=== PATIENT | female | born 1975 | race Caucasian/White ===

== ENCOUNTER 2016-11-28 20:56 | Emergency (ER) | payer OTHER ==
[~2016-11-28] VITALS: Ht 188 cm; Wt 81.8 kg
[2016-11-28 21:15] VITALS: Ht 188 cm; Wt 81.8 kg
[2016-11-28 21:24] LABS: BASOPHIL # 0.1 10^3/ul (0.0-0.1); BASOPHILS % 0.8 % (0.0-2.0); EOSINOPHILS # 0.1 10^3/ul (0.0-0.5); HEMATOCRIT 44.5 % (37.0-47.0); HEMOGLOBIN 14.8 g/dl (12.0-16.0); LYMPHOCYTES # 1.6 10^3/ul (0.8-2.9); LYMPHOCYTES % 14.6 % (15.0-51.0); MEAN CORPUSCULAR HEMOGLOBIN 30.9 pg (29.0-33.0); MEAN CORPUSCULAR HGB CONC 33.3 g/dl (32.0-37.0); MEAN CORPUSCULAR VOLUME 92.8 fl (82.0-101.0); MONOCYTE # 0.6 10^3/ul (0.3-0.9); MONOCYTES % 5.4 % (0.0-11.0); NEUTROPHIL # 8.5 10^3/ul (1.6-7.5); NEUTROPHILS % 78.2 % (39.0-77.0); PLATELET COUNT 313 10^3/UL (140-440); RED CELL DISTRIBUTION WIDTH 14.1 % (11.5-14.5); UNCORRECTED WBC 10.9 10^3/ul (4.8-10.8); WHITE BLOOD COUNT 10.9 10^3/ul (4.8-10.8)
[2016-11-28 21:31] LABS: CONDITION 1
[2016-11-28 21:39] LABS: ALBUMIN 4.6 g/dl (3.3-4.9)
[2016-11-28 21:40] LABS: CHLORIDE 106 mmol/L (97-110); POTASSIUM 4.8 mmol/L (3.5-5.1); SODIUM 145 mmol/L (135-144)
[2016-11-28 21:42] LABS: ALANINE AMINOTRANSFERASE 34 IU/L (13-69); ALBUMIN/GLOBULIN RATIO 1.31; ALKALINE PHOSPHATASE 103 IU/L (42-121); ANION GAP 20 (8-16); ASPARTATE AMINO TRANSFERASE 48 IU/L (15-46); BILIRUBIN,INDIRECT 0.5 mg/dl (0-1.1); BILIRUBIN,TOTAL 0.5 mg/dl (0.2-1.3); BLOOD UREA NITROGEN 8 mg/dl (7-20); CARBON DIOXIDE 24 mmol/L (21-31); GLUCOSE 102 mg/dl (70-220); TOTAL PROTEIN 8.1 g/dl (6.1-8.1)
[2016-11-28 21:43] LABS: ACETAMINOPHEN < 10.0 ug/ml (10.0-30.0); CALCIUM 9.5 mg/dl (8.4-10.2); SALICYLATE < 1.0 mg/dl (5.0-30.0)
[2016-11-28 21:44] LABS: ETHANOL < 10.0 mg/dl
--- NOTE | 2016-11-28 21:50 | ERA ---
ER Documentation Chief Complaint Date/Time DATE: 11/28/16 TIME: 21:46 Chief Complaint "overdose on more than 30 pills"- patient unable to say what kind of pills HPI Patient is a 41-year-old female with ADHD who presents after an overdose. Please note the history and physical exam is limited secondary to the patient's ability to give a history at this time. The patient was brought in by ambulance. She says that she overdosed on 30 pills although she does not know what pills these were. She thinks they might be "a muscle relaxer like Soma or baclofen". She cannot give me a good history as to when she actually even took these pills. At first she said 1:00 and when I asked whether that was 1:00 in the afternoon or 1:00 in the morning she said "the afternoon, no the morning". Paramedics said that he did not see any signs of pill bottles or other drugs in the house. The patient admits to smoking cigarettes but denies illicit drug use. She says that she has not drank alcohol today. She says that this overdose was intentional and she was trying to kill herself ROS All systems reviewed and are negative except as per history of present illness. Allergies Allergies: Coded Allergies: No Known Allergy (Unverified , 11/28/16) PMhx/Soc Medical and Surgical Hx: pt denies Surgical Hx History of Surgery: No Anesthesia Reaction: No Hx Neurological Disorder: Yes (ADHD) Hx Respiratory Disorders: No Hx Cardiac Disorders: No Hx Psychiatric Problems: No (denies depression) Hx Miscellaneous Medical Probl: No Hx Alcohol Use: No Hx Substance Use: No Hx Tobacco Use: Yes Smoking Status: Current every day smoker FmHx Family History: diabetes Physical Exam Vitals Vital Signs Date Time Temp Pulse Resp B/P Pulse Ox O2 Delivery O2 Flow Rate FiO2 11/28/16 21:15 96.0 76 28 164/90 98 Room Air 11/28/16 21:15 96.0 76 25 164/90 98 Physical Exam Const: Confused Head: Atraumatic Eyes: Normal Conjunctiva ENT: Normal External Ears, Nose and Mouth. Neck: Full range of motion..~ No meningismus. Resp: Clear to auscultation bilaterally Cardio: Regular rate and rhythm, no murmurs Abd: Soft, non tender, non distended. Normal bowel sounds Skin: No petechiae or rashes Back: No midline or flank tenderness Ext: No cyanosis, or edema Neur: Awake but confused Psych: Patient has a spastic affect and does admit to intentional overdose Result Diagram: 11/28/16211411/28/162114 Results 24 hrs Laboratory Tests Test 11/28/16 21:15 Acetaminophen Level < 10.0ug/ml Alanine Aminotransferase (ALT/SGPT) 34IU/L Albumin 4.6g/dl Albumin/Globulin Ratio 1.31 Alkaline Phosphatase 103IU/L Anion Gap 20 Aspartate Amino Transf (AST/SGOT) 48IU/L Basophils # 0.110^3/ul Basophils % 0.8% Blood Urea Nitrogen 8mg/dl Calcium Level 9.5mg/dl Carbon Dioxide Level 24mmol/L Chloride Level 106mmol/L Creatinine 0.70mg/dl Direct Bilirubin 0.00mg/dl Eosinophils # 0.110^3/ul Eosinophils % 1.0% Ethyl Alcohol Level < 10.0mg/dl Globulin 3.50g/dl Glucose Level 102mg/dl Hematocrit 44.5% Hemoglobin 14.8g/dl Indirect Bilirubin 0.5mg/dl Lymphocytes # 1.610^3/ul Lymphocytes % 14.6% Mean Corpuscular Hemoglobin 30.9pg Mean Corpuscular Hemoglobin Concent 33.3g/dl Mean Corpuscular Volume 92.8fl Mean Platelet Volume 8.0fl Monocytes # 0.610^3/ul Monocytes % 5.4% Neutrophils # 8.510^3/ul Neutrophils % 78.2% Nucleated Red Blood Cells # 0.010^3/ul Nucleated Red Blood Cells % 0.0/100WBC Platelet Count 21855^3/UL Potassium Level 4.8mmol/L Red Blood Count 4.8010^6/ul Red Cell Distribution Width 14.1% Salicylates Level < 1.0mg/dl Sodium Level 145mmol/L Total Bilirubin 0.5mg/dl Total Protein 8.1g/dl White Blood Count 10.910^3/ul Procedures/MDM Smoking Cessation Therapy: Pt. was lectured for greater than 3 minutes on the health risks of continued smoking and the benefits of cessation. Patient is a 41-year-old female with ADHD who presents with intentional overdose. The patient has a workup which is been done which shows basically normal laboratory studies at this time. Alcohol level is pending at this time. The patient had an intentional overdose of an unknown medicine at an unknown time. She has no signs of respiratory depression or somnolence at this time and she is actually more spastic than somnolent. The patient will be seen by tele-psychiatry who has been consulted but I do believe that she will likely require a 5150 hold for intentional overdose. She says that she does want help as well and says "I should be admitted for 3 days". The patient will be signed out to the oncoming physician for further care. There were no signs of airway compromise during multiple evaluations in the emergency department. Critical Care: Time: 35 minutes excluding all billable procedures. Treatments/Evaluations: Close monitoring and treatment of unstable vital signs, cardiorespiratory, and neurologic status, while maintaining tight balance of fluid, respiratory, and cardiac interventions. Departure Diagnosis: Primary Impression: Overdose Qualified Code: T50.902A - Overdose, intentional self-harm, initial encounter Additional Impression: Suicide threat or attempt Condition: YOLANDA Castorena MD Nov 28, 2016 21:50
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
[2016-11-28 22:36] LABS: ADD UMIC NO; URINE BILIRUBIN (Dip) 2+ (NEGATIVE); URINE BLOOD (Dip) NEGATIVE (NEGATIVE); URINE COLOR YELLOW (YELLOW); URINE GLUCOSE (Dip) NEGATIVE (NEGATIVE); URINE KETONES (Dip) 3+ (NEGATIVE); URINE LEUKOCYTE ESTERASE (Dip) NEGATIVE (NEGATIVE); URINE NITRITE (Dip) NEGATIVE (NEGATIVE); URINE TOTAL PROTEIN (Dip) NEGATIVE (NEGATIVE); URINE UROBILINOGEN (Dip) 0.2 E.U./dL (0.1-1.0)
[2016-11-28 22:38] LABS: ICTOTEST NEGATIVE (NEGATIVE)
[2016-11-28 23:04] LABS: BARBITURATES NEGATIVE (NEGATIVE); BENZODIAZEPINES NEGATIVE (NEGATIVE); CANNABINOIDS NEGATIVE (NEGATIVE); COCAINE NEGATIVE (NEGATIVE); OPIATES NEGATIVE (NEGATIVE)
[2016-11-30] MEDS ORDERED: LORAZEPAM 2 MG INJ IM ONE (14:00)
[2016-11-30] MEDS ORDERED: HALOPERIDOL 5 MG INJ IM ONE ×2 (14:00→19:30)
[2016-11-30] MEDS ORDERED: DIPHENHYDRAMINE 50 MG INJ IM ONE (19:30)
[2016-12-01 06:30] VITALS: TEMP 97.9
[2016-12-01 07:32] VITALS: BP 111/59; PULSE 80; RESP 16
== END 2016-12-01 07:35 ==
LOC: E/R 20:56
DX: T50.902A Poisoning by unspecified drugs, medicaments and biological substances, intentional self-harm, initial encounter (principal); R40.2232 Coma scale, best verbal response, inappropriate words, at arrival to emergency department; T14.91 Suicide attempt; F17.210 Nicotine dependence, cigarettes, uncomplicated; R40.2362 Coma scale, best motor response, obeys commands, at arrival to emergency department; R40.2142 Coma scale, eyes open, spontaneous, at arrival to emergency department
CPT/HCPCS: 36415; 80053; 80303; 80320; 80329; 81003; 85025; 93005; Z7502; G0478; G0479